=== PATIENT | female | born 1950 | race Caucasian/White ===

== ENCOUNTER 2016-11-16 18:24 | Emergency (ER) | payer MEDICARE, OTHER ==
[~2016-11-16] VITALS: Ht 165.1 cm; Wt 87.1 kg
[2016-11-16 18:56] LABS: BASO # 0.1 x10^3/uL (0.0-0.2); BASO % 1 % (0-3); EOS % 4 % (0-3); HEMATOCRIT 40.6 % (36.0-47.0); HEMOGLOBIN 13.6 g/dL (12.0-15.5); LYMPH # 2.6 x10^3/uL (1.0-4.8); LYMPH % 26 % (24-48); MEAN CORPUSCULAR HEMOGLOBIN 29 pg (25-35); MEAN CORPUSCULAR HGB CONC 34 g/dL (31-37); MEAN CORPUSCULAR VOLUME 85 fL (79-100); MONO % 5 % (0-9); NEUT % 65 % (31-73); PLATELET COUNT 226 x10^3/uL (140-400); RED BLOOD COUNT 4.76 x10^6/uL (3.50-5.40); RED CELL DISTRIBUTION WIDTH 13.8 % (11.5-14.5); WHITE BLOOD COUNT 10.3 x10^3/uL (4.0-11.0)
[2016-11-16] MEDS ORDERED: LABETALOL 20 MG/4 ML DISP.SYRIN. ONE (18:56)
[2016-11-16] MEDS ORDERED: IV NORMAL SALINE 500ML BAG 500 ML IV ONE (19:15)
[2016-11-16] MEDS ORDERED: LABETALOL 20 MG/4 ML DISP.SYRIN. IVP ONE (19:15)
--- NOTE | 2016-11-16 19:26 | RAD ---
PROCEDURE CT head without contrast HISTORY Dizziness blurred vision and frontal headache TECHNIQUE Noncontrast axial cross sectional CT scanning of the head was performed. FINDINGS There is moderate diffuse atrophy. No acute intracranial hemorrhage or midline shift or mass-effect or hydrocephalus or extra-axial fluid collection is seen. No focal hypodense area is seen to indicate an acute infarct or edema radiographically. No skull fracture or pneumocephalus is seen. No opacification of the mastoid sinuses or the paranasal sinuses is seen. The maxillary sinuses are not completely seen in this study. IMPRESSION Moderate diffuse atrophy is advanced for the patient's age. No acute findings. Electronically signed by: Jluis Vargas MD (Nov 16, 2016 19:25:27)
[2016-11-16 20:12] LABS: CALCIUM 9.8 mg/dL (8.5-10.1); CREATININE 1.1 mg/dL (0.6-1.0); GFR 49.7
[2016-11-16 20:18] LABS: ALBUMIN 4.1 g/dL (3.4-5.0); DIRECT BILIRUBIN 0.1 mg/dL (0.0-0.2); TOTAL BILIRUBIN 0.3 mg/dL (0.2-1.0); TOTAL PROTEIN 7.9 g/dL (6.4-8.2)
[2016-11-16 21:23] LABS: BILIRUBIN,URINE NEGATIVE (NEG); GLUCOSE,URINE NEGATIVE (NEG); NITRITE,URINE NEGATIVE (NEG); PROTEIN,URINE NEGATIVE (NEG-TRACE); UROBILINOGEN,URINE 0.2 mg/dL (0.2 mg/dL)
[2016-11-16 21:26] LABS: BACTERIA,URINE FEW /HPF (0-FEW); RBC,URINE 0 /HPF (0-2); SQUAMOUS EPITHELIAL CELL,UR FEW /LPF
--- NOTE | 2016-11-16 21:54 | PHYS DOC ---
Past Medical History Past Medical History: Diabetes-Type II, High Cholesterol, Hypertension, Hypothyroid Past Surgical History: Tubal ligation Additional Past Surgical Histo: THYROIDECTOMY, BREAST BIOPSY Alcohol Use: None Drug Use: None Adult General Chief Complaint Chief Complaint: NEURO SYMPTOMS/DEFICITS HPI HPI 66-year-old female presenting to the emergency department with blurry vision headache and confusion intermittently. This started today approximately an hour and a half prior to arrival. She reports sitting down drinking a soda which improved her symptoms mildly. Currently she still feels that she has mildly blurred vision. She is oriented to person place and time. Her states that she has been off over the past hour and a half. Location brain. Duration intermittent. No exacerbating factors present. Review of systems is negative for chest pain shortness of breath palpitations nausea vomiting fevers or chills. All other review of systems is negative unless otherwise noted in history of present illness. Review of Systems Review of Systems SEE ABOVE. Current Medications Current Medications Current Medications Medications (Trade) Dose Ordered Sig/Tasha Start Time Stop Time Status Last Admin Dose Admin Labetalol HCl (Normodyne) 20 mg STK-MED ONCE 11/16/16 18:56 11/16/16 18:57 DC Labetalol HCl 20 mg 20 mg 1X ONCE 11/16/16 19:15 11/16/16 19:16 DC Sodium Chloride (Iv Sodium Chloride 0.9% 500ml Bag) 500 ml @ 500 mls/hr 1X ONCE 11/16/16 19:15 11/16/16 20:14 DC 11/16/16 19:01 500 MLS/HR Allergies Allergies Allergies Coded Allergies Type Severity Reaction Last Updated Verified Sulfa (Sulfonamide Antibiotics) Allergy Intermediate 11/16/16 Yes Physical Exam Physical Exam Constitutional: Well developed, well nourished, no acute distress, non-toxic appearance. HENT: Normocephalic, atraumatic, bilateral external ears normal, oropharynx moist, no oral exudates, nose normal. [] Eyes: PERRLA, EOMI, conjunctiva normal, no discharge. Neck: Normal range of motion, no tenderness, supple, no stridor. Cardiovascular:Heart rate regular rhythm, no murmur [] Lungs & Thorax: Bilateral breath sounds clear to auscultation Abdomen: Bowel sounds normal, soft, no tenderness, no masses, no pulsatile masses. [] Skin: Warm, dry, no erythema, no rash. Back: No tenderness, no CVA tenderness. [] Extremities: No tenderness, no cyanosis, no clubbing, ROM intact, no edema. [] Neurologic: Mental status: Awake oriented and alert x3 Cranial nerves: Extraocular movements intact, eyebrows tr bilaterally smile symmetric, uvula elevation, shoulder shrug intact, tongue protrusion normal Sensation: equal and normal in all extremities Strength: 5/5 in upper and lower extremities bilaterally Psychologic: Affect normal, judgement normal, mood normal. Current Patient Data Vital Signs Vital Signs Date Time Temp Pulse Resp B/P Pulse Ox O2 Delivery O2 Flow Rate FiO2 11/16/16 22:03 64 20 117/58 98 Room Air 11/16/16 18:30 98.0 98.0 Lab Values Laboratory Tests Test 11/16/16 18:43 11/16/16 18:45 11/16/16 19:40 11/16/16 20:46 Glucose (Fingerstick) 136mg/dL (70-99) H 119mg/dL (70-99) H White Blood Count 10.3x10^3/uL (4.0-11.0) Red Blood Count 4.76x10^6/uL (3.50-5.40) Hemoglobin 13.6g/dL (12.0-15.5) Hematocrit 40.6% (36.0-47.0) Mean Corpuscular Volume 85fL (79-100) Mean Corpuscular Hemoglobin 29pg (25-35) Mean Corpuscular Hemoglobin Concent 34g/dL (31-37) Red Cell Distribution Width 13.8% (11.5-14.5) Platelet Count 226x10^3/uL (140-400) Neutrophils (%) (Auto) 65% (31-73) Lymphocytes (%) (Auto) 26% (24-48) Monocytes (%) (Auto) 5% (0-9) Eosinophils (%) (Auto) 4% (0-3) H Basophils (%) (Auto) 1% (0-3) Neutrophils # (Auto) 6.6x10^3uL (1.8-7.7) Lymphocytes # (Auto) 2.6x10^3/uL (1.0-4.8) Monocytes # (Auto) 0.5x10^3/uL (0.0-1.1) Eosinophils # (Auto) 0.4x10^3/uL (0.0-0.7) Basophils # (Auto) 0.1x10^3/uL (0.0-0.2) Sodium Level 145mmol/L (136-145) Potassium Level 4.0mmol/L (3.5-5.1) Chloride Level 105mmol/L (98-107) Carbon Dioxide Level 29mmol/L (21-32) Anion Gap 11 (6-14) Blood Urea Nitrogen 14mg/dL (7-20) Creatinine 1.1mg/dL (0.6-1.0) H Estimated GFR (Cockcroft-Gault) 49.7 Glucose Level 140mg/dL (70-99) H Calcium Level 9.8mg/dL (8.5-10.1) Total Bilirubin 0.3mg/dL (0.2-1.0) Direct Bilirubin 0.1mg/dL (0.0-0.2) Aspartate Amino Transferase (AST) 18U/L (15-37) Alanine Aminotransferase (ALT) 22U/L (14-59) Alkaline Phosphatase 78U/L (46-116) Troponin I Quantitative < 0.017ng/mL (0.000-0.055) Total Protein 7.9g/dL (6.4-8.2) Albumin 4.1g/dL (3.4-5.0) Lipase 199U/L (73-393) Urine Collection Type Unknown Urine Color Yellow Urine Clarity Clear Urine pH 6.0 Urine Specific [place] 1.010 Urine Protein Negativemg/dL (NEG-TRACE) Urine Glucose (UA) Negativemg/dL (NEG) Urine Ketones (Stick) Negativemg/dL (NEG) Urine Blood Negative (NEG) Urine Nitrite Negative (NEG) Urine Bilirubin Negative (NEG) Urine Urobilinogen Dipstick 0.2mg/dL (0.2 mg/dL) Urine Leukocyte Esterase Small (NEG) Urine RBC 0/HPF (0-2) Urine WBC 5-10/HPF (0-4) Urine Squamous Epithelial Cells Few/LPF Urine Bacteria Few/HPF (0-FEW) Laboratory Tests 11/16/16 18:45 Laboratory Tests 11/16/16 19:40 EKG EKG [] EKG shows sinus rhythm with a regular rate. ST segments congruent. [place] leftward. Intervals within normal limits. Radiology/Procedures Radiology/Procedures [] Course & Med Decision Making Course & Med Decision Making Pertinent Labs and Imaging studies reviewed. (See chart for details) [] 56-year-old female presenting the emergency Department with blurred vision confusion and headache. Vital signs afebrile normal heart rate. Satting well with significant hypertension on initial evaluation. IV antihypertensive medication ordered however by the time the medication got to the patient's bedside the patient's blood pressure come down to 160 systolic she is feeling better. The rest of her workup included normal EKG. Blood work was obtained which showed normal CBC urinalysis unremarkable. Chemistry panel unremarkable. Troponin negative. Blood glucose within normal limits. On reexamination the second time the patient's blood pressure had come down to approximately 120 systolic. She was feeling completely asymptomatic feeling much better. No intervention had been given to lower her blood pressure. The patient was subsequent discharged home to follow up with her primary care doctor over the next 2-3 days. Dragon Disclaimer Dragon Disclaimer This electronic medical record was generated, in whole or in part, using a voice recognition dictation system. Departure Departure Impression: Primary Impression: Blurred vision, bilateral Additional Impressions: Headache Hypertension Disposition: 01 HOME, SELF-CARE Condition: STABLE Referrals: NO PCP (PCP) WENDY CRAFT MD Patient Instructions: Hypertension Additional Instructions: Thank you for allowing us to participate in your care today. Followup with your primary care physician in 3 days if your symptoms do not improve. If you do not have a primary care provider you can ask for a list of our primary care providers. Return to the emergency department you have any new or concerning findings. This should be evaluated by the primary care physician and any necessary consulting services for continued management within a few days after discharge. Return to emergency room if you have any new or concerning symptoms including but not limited to fever, chills, nausea, vomiting, intractable pain, any new rashes, chest pain, shortness of air, uncontrolled bleeding, difficulty breathing, and/or vision loss. Problem Qualifiers MACARENA QUARLES MD Nov 16, 2016 21:54
[2016-11-16 22:03] VITALS: BP 117/58
--- NOTE | 2016-11-17 06:06 | EKG ---
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
--- NOTE | 2016-11-19 15:40 | VNOTE ---
CALL BACK NOTE CALL BACK Microbiology 11/16/16 Urine Culture - Final, Complete 11/16/16 Urine Culture Result 1 (HERVE) - Final, Complete 11/16/16 Antimicrobic Susceptibility - Final, Complete The patient's urine grew out greater than 100 CFU per mL of Escherichia coli. She was not treated for urinary tract infection in the emergency department. I contacted the patient to make her aware. She states that she is having some urinary symptoms. She uses the [facility] at the [facility]. Prescription for Keflex 500 mg twice a day 3 days was called to the pharmacy. Patient is instructed to follow-up with her doctor after completion of the antibiotics for recheck of her urine. She verbalizes understanding and agrees with plan. KWABENA PHILLIP Nov 19, 2016 15:40
== END 2016-11-16 22:04 | disposition home or self-care (01) ==
LOC: ER 18:24
DX: H53.8 Other visual disturbances (principal); R51 Headache; I10 Essential (primary) hypertension; E78.00 Pure hypercholesterolemia, unspecified; E11.9 Type 2 diabetes mellitus without complications; E03.9 Hypothyroidism, unspecified; Z88.2 Allergy status to sulfonamides
CPT/HCPCS: 36415; 70450; 80048; 80076; 81001; 82947; 83690; 84484; 85027; 87086; 93005; 96360; 99285; J7040